=== PATIENT | male | born 1975 | race Caucasian/White ===

== ENCOUNTER 2019-05-19 17:13 | Emergency (ER) | payer BC ==
[~2019-05-19] VITALS: Ht 195.6 cm; Wt 92.5 kg
[2019-05-19] MEDS ORDERED: TRAMADOL 50 MG50 MG PO (17:28)
[2019-05-19 17:59] LABS: ABSOLUTE BASOPHILS 0.1 thou/uL (0.0-0.2); ABSOLUTE EOSINOPHILS 0.2 thou/uL (0.0-0.7); ABSOLUTE LYMPHOCYTES 2.2 thou/uL (0.8-5.3); ABSOLUTE NEUTROPHILS 10.2 thou/uL (1.6-8.1); BASOPHILS 0.7 %; EOSINOPHILS 1.2 %; HEMATOCRIT 40.7 % (42.0-52.0); HEMOGLOBIN 14.3 gm/dL (14.0-18.0); LYMPHOCYTES 16.2 %; MCH 33.4 pg (26.0-34.0); MCV 95.4 fL (80.0-100.0); MPV 8.5 fl. (7.2-11.1); NUCLEATED RBCS 0 /100WBC; PLATELET COUNT* 204 thou/uL (150-400); POLYS 74.9 %; RBC 4.26 mil/uL (4.50-6.00); RDW-CV 12.6 % (10.5-14.5); WBC 13.7 thou/uL (4.0-11.0)
[2019-05-19 18:10] LABS: CALCIUM 8.2 mg/dL (8.5-10.1); POTASSIUM 3.9 mmol/L (3.5-5.1)
[2019-05-19 18:12] LABS: ALBUMIN 3.2 g/dL (3.4-5.0); TOTAL BILIRUBIN 0.3 mg/dL (<0.1-1.0); TOTAL PROTEIN 7.1 g/dL (6.4-8.2)
[2019-05-19] MEDS ORDERED: AUGMENTIN 875-1 EACH PO (19:17)
[2019-05-19 19:38] VITALS: BP 126/50
== END 2019-05-19 19:39 | disposition home or self-care (01) ==
LOC: M.ERS 17:13
PROVIDERS: Nurse Practitioner Family
DX: K52.9 Noninfective gastroenteritis and colitis, unspecified (principal); Z90.49 Acquired absence of other specified parts of digestive tract